=== PATIENT | female | born 1975 | race Caucasian/White ===

== ENCOUNTER → 2020-02-28 | Outpatient (CLI) | payer BC ==
--- NOTE | 2020-02-28 11:10 | CT ---
EXAM DESCRIPTION: Abdomen/Pelvis w/wo Contrast CLINICAL HISTORY: 44 years Female, PAIN IN PELVIS COMPARISON: None. TECHNIQUE: CT of the abdomen and pelvis acquired without and with IV contrast material. Coronal and sagittal reformations provided. This exam was performed according to our departmental dose-optimization program, which includes automated exposure control, adjustment of the mA and/or kV according to patient size and/or use of iterative reconstruction technique. FINDINGS: Lung bases: Clear. Solid Organs: Enlarged liver up to 16.9 cm. Normal appearing gallbladder, spleen, pancreas, adrenal glands, kidneys. GI tract: Decompressed stomach. No small bowel obstruction. Moderate colonic stool. Normal appendix. Short segment mucosal thickening and luminal narrowing of the distal sigmoid colon towards the rectum but without pericolonic inflammation or fluid collection. Similar finding within the mid descending colon. Vascular: Normal. Musculoskeletal and soft tissues: No acute fracture or aggressive appearing osseous lesion. Soft tissues unremarkable. Urinary bladder: Normal. Uterus and adnexa: Normal. Other: None. IMPRESSION: 1. Findings of the distal colon as described above could represent peristalsis versus infectious or inflammatory colitis. No pericolonic fluid collection or free air. 2. Enlarged liver. 3. Moderate colonic stool. Electronically signed by: Everardo Weber MD 02/28/2020 11:08 AM CLAIMS REPRESENTATIVE
== END ==
LOC: CT 09:41
PROVIDERS: ATTEND Nurse Practitioner Family
DX: K63.9 Disease of intestine, unspecified (principal); R16.0 Hepatomegaly, not elsewhere classified